=== PATIENT | female | born 1965 | race Hispanic/Latino ===

== ENCOUNTER 2016-10-14 20:05 | Observation (INO) | payer MEDICAID, OTHER ==
[2016-10-14 20:06] VITALS: BMI 24.5
[2016-10-14] MEDS ORDERED: Sodium Chloride 0.9% 1,000 ML IV STA (20:43)
[2016-10-14 21:02] LABS: HEMATOCRIT 39.6 % (36.0-48.0); MEAN CELL VOLUME 89.6 fL (80.0-105.0); MEAN CORPUSCULAR HEMOGLOBIN 31.4 pg (25.0-35.0); MEAN CORPUSCULAR HGB CONC 35.1 g/dl (31.0-37.0); MEAN PLATELET VOLUME 9.5 fl (7.0-11.0); RED CELL DISTRIBUTION WIDTH 13.5 % (11.5-14.5); WHITE BLOOD COUNT 16.8 10^3/ul (4.5-11.0)
[2016-10-14 21:04] LABS: URINE BILIRUBIN NEGATIVE (NEGATIVE); URINE BLOOD NEGATIVE (NEGATIVE); URINE GLUCOSE (UA) NEGATIVE (NEGATIVE); URINE KETONE NEGATIVE (NEGATIVE); URINE LEUKOCYTE ESTERASE NEGATIVE Leu/uL (NEGATIVE); URINE PROTEIN NEGATIVE mg/dL (<30 mg/dL); URINE UROBILINOGEN 0.2 E.U./dL (<1 E.U./dL)
--- NOTE | 2016-10-14 21:05 | ED PDOC ---
Arrival/HPI - General Chief Complaint: Back Pain Time Seen by Provider: 10/14/16 20:25 Historian: Patient - History of Present Illness Narrative History of Present Illness (Text): 10/14/16 20:30 Nancy Lewis is a 51 year old female who presents to the Emergency department complaining of right lower back pain radiating at times to lower abdomen tonight. Patient reports associated nausea and vomiting. Patient is able to ambulate without difficulty. Patient denies any trauma/injury, fever, chills, chest pain, shortness of breath, diarrhea, urinary symptoms, neck pain, headache , dizziness, or any other complaints.No vaginal discharge. Symptom Onset: Gradual Symptom Course: Unchanged Activities at Onset: Rest, Light Context: Home Past Medical History - Provider Review Nursing Documentation Reviewed: Yes - Infectious Disease Hx of Infectious Diseases: None - Reproductive Menopause: Yes - Cardiac Hx Cardiac Disorders: No Hx Hypertension: No - Pulmonary Hx Asthma: Yes - Neurological Hx Neurological Disorder: No - HEENT Hx HEENT Disorder: Yes Other/Comment: PT. FOR SURGERY 08/27/15-DX: VOCAL CORD POLYP - Renal Hx Renal Disorder: No - Endocrine/Metabolic Hx Endocrine Disorders: No - Hematological/Oncological Hx Blood Disorders: No - Integumentary Hx Dermatological Disorder: No - Musculoskeletal/Rheumatological Hx Musculoskeletal Disorders: Yes Hx Back Pain: Yes - Gastrointestinal Hx Gall Bladder Disease: Yes - Genitourinary/Gynecological Hx Genitourinary Disorders: No Hx Sexually Transmitted Diseases: No - Psychiatric Hx Anxiety: Yes Hx Depression: Yes Hx Substance Use: Yes (heroin) - Surgical History Hx Cholecystectomy: Yes - Anesthesia Hx Anesthesia: Yes Hx Anesthesia Reactions: No Hx Malignant Hyperthermia: No Family/Social History - Physician Review Nursing Documentation Reviewed: Yes Family/Social History: No Known Family HX Smoking Status: Heavy Smoker > 10 Cigarettes Daily Hx Alcohol Use: Yes Hx Substance Use: Yes (heroin) Substance used: heroine Allergies/Home Meds Allergies/Adverse Reactions: Allergies No Known Allergies Allergy (Verified 10/14/16 20:19) Home Medications: Home Meds Medication Instructions Recorded Confirmed Albuterol HFA [Ventolin HFA 90 2 puff INH PRN PRN 06/15/15 10/14/16 mcg/actuation (8 g)] Review of Systems - Physician Review All systems were reviewed & negative as marked: Yes - Review of Systems Constitutional: Normal Eyes: Normal ENT: Normal Respiratory: Normal. absent: SOB, Cough Cardiovascular: Normal. absent: Chest Pain Gastrointestinal: Abdominal Pain, Nausea, Vomiting Genitourinary Female: Normal. absent: Dysuria, Frequency, Hematuria, Urine Output Changes Musculoskeletal: Back Pain. absent: Neck Pain Skin: Normal. absent: Rash Neurological: Normal. absent: Headache, Dizziness Endocrine: Normal Hemo/Lymphatic: Normal Psychiatric: Normal Physical Exam Vital Signs Reviewed: Yes Vital Signs Temp Pulse Resp BP Pulse Ox 10/14/16 23:59 90 18 101/76 95 10/14/16 22:34 98.4 F 86 18 112/76 95 10/14/16 20:20 98.6 F 106 H 16 122/80 94 L Temperature: Afebrile Blood Pressure: Normal Pulse: Regular Respiratory Rate: Normal Appearance: Positive for: Well-Appearing, Non-Toxic, Comfortable Pain Distress: None Mental Status: Positive for: Alert and Oriented X 3 - Systems Exam Head: Present: Atraumatic, Normocephalic Pupils: Present: PERRL Extroacular Muscles: Present: EOMI Conjunctiva: Present: Normal Mouth: Present: Moist Mucous Membranes Pharnyx: Present: Normal Neck: Present: Normal Range of Motion. No: Meningeal Signs, MIDLINE TENDERNESS , Paraspinal Tenderness Respiratory/Chest: Present: Clear to Auscultation, Good Air Exchange. No: Respiratory Distress, Accessory Muscle Use Cardiovascular: Present: Regular Rate and Rhythm, Normal S1, S2. No: Murmurs Abdomen: Present: Tenderness (right lower abdomen), Normal Bowel Sounds. No: Distention, Peritoneal Signs Back: Present: Normal Inspection. No: CVA Tenderness, Midline Tenderness, Paraspinal Tenderness, Pain with Leg Raise Upper Extremity: Present: Normal Inspection. No: Cyanosis, Edema Lower Extremity: Present: Normal Inspection. No: Edema Neurological: Present: GCS=15, CN II-XII Intact, Speech Normal Skin: Present: Warm, Dry, Normal Color. No: Rashes Psychiatric: Present: Alert, Oriented x 3, Normal Insight, Normal Concentration Medical Decision Making ED Course and Treatment: 10/14/16 20:30 Impression: 51 year old female complaining of right lower back pain, nausea, and vomiting. Plan: -- CT Abdomen and Pelvis -- Labs, lipase -- Urinalysis, urine drug screen -- IV fluids -- Toradol -- Zofran -- Pepcid -- Reassess and disposition Prior Visits: Notes and results from previous visits were reviewed. Progress Notes: Reviewed radiology, CT Abdomen and Pelvis shows: Prominence of the main pancreatic duct, without a discrete mass identified. If clinical suspicion for pancreatic pathology persists, recommend dedicated (nonemergent) CT examination of the abdomen, with pancreatic protocol, for further evaluation. Trace mural thickening within multiple loops of small bowel, without surrounding inflammation or fluid to confirm an enteritis. 10/14/16 23:24 Case discussed with medical referral coordinator adaptive physical education teacher, who is aware and agrees with plan. 10/14/16 23:[address] Thomas, who is aware and agrees with plan. Accepts pt in to hospitalist service. Pt will go to [facility] observation for abdominal pain and leukocytosis. - Lab Interpretations Lab Results: 10/14/16 20:34 10/14/16 20:34 Lab Results 10/14/16 20:34: Urine Opiates Screen Positive H, Urine Methadone Screen Negative , Ur Barbiturates Screen Negative, Ur Phencyclidine Scrn Negative, Ur Amphetamines Screen Negative, U Benzodiazepines Scrn Negative, U Oth Cocaine Metabols Negative, U Cannabinoids Screen Negative 10/14/16 20:34: WBC 16.8 H D, RBC 4.42, Hgb 13.9, Hct 39.6, MCV 89.6, MCH 31.4, MCHC 35.1, RDW 13.5, Plt Count 153, MPV 9.5 10/14/16 20:34: Sodium 138, Potassium 4.4, Chloride 103, Carbon Dioxide 24, Anion Gap 15, BUN 18, Creatinine 0.7, Est GFR ( Amer) > 60, Est GFR (Non- Af Amer) > 60, Random Glucose 116 H, Calcium 9.5, Total Bilirubin 1.9 H, AST 40 H, ALT 70 H, Alkaline Phosphatase 107, Total Protein 7.5, Albumin 4.0, Globulin 3.5, Albumin/Globulin Ratio 1.1, Lipase 12 L 10/14/16 20:34: Urine Color Yellow, Urine Appearance Clear, Urine pH 6.0, Ur Specific Emery 1.015, Urine Protein Negative, Urine Glucose (UA) Negative, Urine Ketones Negative, Urine Blood Negative, Urine Nitrate Negative, Urine Bilirubin Negative, Urine Urobilinogen 0.2, Ur Leukocyte Esterase Negative, Urine HCG, Qual Negative I have reviewed the lab results: Yes - RAD Interpretation Narrative RAD Interpretations (Text): CT Abdomen and Pelvis shows: Lower thorax: The bilateral lung bases are clear. ABDOMEN: Liver: No acute findings. Gallbladder and bile ducts: The gallbladder is surgically absent. No significant intrahepatic biliary ductal dilation. Pancreas: Enhances homogeneously. Prominence of the main pancreatic duct, without a discrete mass identified. Spleen: No acute findings. Adrenals: No acute findings. Kidneys and ureters: No acute findings. No hydronephrosis or renal calculi. No discrete solid mass. PELVIS: Bladder: No acute findings. Reproductive: No acute findings. Appendix: The air filled appendix is of normal caliber (series 2, image 133). ABDOMEN and PELVIS: Stomach and bowel: Small bowel wall thickening but no surrounding inflammation or fluid to confirm an acute enteritis. Peritoneum: No significant fluid collection. No free air. Lymph nodes: No pathologically enlarged lymph nodes. Vasculature: Unremarkable. Bones: No acute fracture. No significant degenerative disease within the lumbosacral spine. IMPRESSION: Prominence of the main pancreatic duct, without a discrete mass identified. If clinical suspicion for pancreatic pathology persists, recommend dedicated (nonemergent) CT examination of the abdomen, with pancreatic protocol, for further evaluation. Trace mural thickening within multiple loops of small bowel, without surrounding inflammation or fluid to confirm an enteritis. Radiology Orders: 10/14/16 21:24 ABD & PELVIS IV CONTRAST ONLY [CT] Stat Drug Abuse Social Worker: Radiologist - Medication Orders Current Medication Orders: Albuterol Sulfate (Albuterol 0.083% Inhal Lisa (2.5 Mg/3 Ml) Ud) 2.5 mg IH [id number] PRN PRN Reason: Shortness of Breath Diphenhydramine HCl (Benadryl) 25 mg PO Q6 PRN PRN Reason: Itching / Pruritus Gabapentin (Neurontin) 300 mg PO BID RIVKA PRN Reason: Protocol Hydrocortisone (Cortizone 1% Oint) 0 gm TOP BID RIVKA Metronidazole (Flagyl) 500 mg in 100 mls @ 100 mls/hr IVPB Q8 RIVKA PRN Reason: Protocol Ceftriaxone Sodium (Rocephin 1 Gram Ivpb) 1 gm in 100 mls @ 100 mls/hr IVPB DAILY RIVKA PRN Reason: Protocol Ketorolac Tromethamine (Toradol) 30 mg IVP Q6 PRN PRN Reason: Pain, moderate (4-7) Last Admin: 10/15/16 01:36 Dose: 30 mg Pantoprazole Sodium (Protonix Ec Tab) 40 mg PO 0630 RIVKA Quetiapine Fumarate (Seroquel) 300 mg PO HS RIVKA PRN Reason: Protocol Discontinued Medications Famotidine (Pepcid) 20 mg IVP STAT STA Stop: 10/14/16 20:44 Last Admin: 10/14/16 21:10 Dose: 20 mg Sodium Chloride (Sodium Chloride 0.9%) 1,000 mls @ 999 mls/hr IV .Q1H1M STA Stop: 10/14/16 21:43 Last Admin: 10/14/16 21:02 Dose: 999 mls/hr Iohexol (Omnipaque 350 100 Ml) Confirm Administered Dose 350 mg .ROUTE .STK-MED ONE Stop: 10/14/16 21:34 Ketorolac Tromethamine (Toradol) 30 mg IVP ONCE ONE Stop: 10/14/16 20:44 Last Admin: 10/14/16 21:02 Dose: 30 mg Ondansetron HCl (Zofran Inj) 4 mg IVP ONCE ONE Stop: 10/14/16 20:44 Last Admin: 10/14/16 21:02 Dose: 4 mg Quetiapine Fumarate (Seroquel) 300 mg PO ONCE ONE PRN Reason: Protocol Stop: 10/15/16 01:36 Last Admin: 10/15/16 02:01 Dose: 300 mg - Higinioibe Statement The provider has reviewed the documentation as recorded by the Mynor Aldridge All medical record entries made by the Mynor were at my direction and personally dictated by me. I have reviewed the chart and agree that the record accurately reflects my personal performance of the history, physical exam, medical decision making, and the department course for this patient. I have also personally directed, reviewed, and agree with the discharge instructions and disposition. Disposition/Present on Arrival - Present on Arrival Any Indicators Present on Arrival: No History of DVT/PE: No History of Uncontrolled Diabetes: No Urinary Catheter: No History of Decub. Ulcer: No History Surgical Site Infection Following: None - Disposition Have Diagnosis and Disposition been Completed?: Yes Diagnosis: Abdominal pain Disposition: HOSPITALIZED Disposition Time: 23:37 Patient Plan: Observation Patient Problems: Current Active Problems Problem Status Onset Abdominal pain Acute Condition: STABLE
[2016-10-14 21:07] LABS: URINE APPEARANCE CLEAR (CLEAR); URINE COLOR YELLOW (YELLOW)
[2016-10-14 21:16] LABS: ALB/GLOB RATIO 1.1 (1.1-1.8); ALKALINE PHOSPHATASE 107 U/L (38-133); ALT/SGPT 70 U/L (7-56); AST/SGOT 40 U/L (15-39); BILIRUBIN,TOTAL 1.9 mg/dL (0.2-1.3); BLOOD UREA NITROGEN 18 mg/dL (7-21); CALCIUM 9.5 mg/dL (8.4-10.5); CARBON DIOXIDE 24 mmol/L (21-33); CHLORIDE 103 mmol/L (98-107); GFR AFRICAN-AMERICAN > 60; GLUCOSE,RANDOM 116 mg/dL (70-110); LIPASE 12 U/L (23-300); POTASSIUM 4.4 mmol/L (3.6-5.0); SODIUM 138 mmol/L (132-148); TOTAL PROTEIN 7.5 g/dL (5.8-8.3)
[2016-10-14] MEDS ORDERED: Iohexol 350 MG/100 ML VIAL ONE (21:33)
--- NOTE | 2016-10-14 22:24 | CT ---
EXAM: CT Abdomen and Pelvis With Intravenous Contrast CLINICAL HISTORY: 51 years old, female; Pain; Other: Back; Prior surgery; Surgery date: 6+ months; Surgery type: Gb; Additional info: Abdominal pain TECHNIQUE: Axial computed tomography images of the abdomen and pelvis with intravenous contrast. This CT exam was performed using one or more of the following dose reduction techniques: automated exposure control, adjustment of the mA and/or kV according to patient size, and/or use of iterative reconstruction technique. Coronal and sagittal reformatted images were created and reviewed. CONTRAST: 94 mL of OMNI 350 administered intravenously. COMPARISON: No relevant prior studies available. FINDINGS: Lower thorax: The bilateral lung bases are clear. ABDOMEN: Liver: No acute findings. Gallbladder and bile ducts: The gallbladder is surgically absent. No significant intrahepatic biliary ductal dilation. Pancreas: Enhances homogeneously. Prominence of the main pancreatic duct, without a discrete mass identified. Spleen: No acute findings. Adrenals: No acute findings. Kidneys and ureters: No acute findings. No hydronephrosis or renal calculi. No discrete solid mass. PELVIS: Bladder: No acute findings. Reproductive: No acute findings. Appendix: The air filled appendix is of normal caliber (series 2, image 133). ABDOMEN and PELVIS: Stomach and bowel: Small bowel wall thickening but no surrounding inflammation or fluid to confirm an acute enteritis. Peritoneum: No significant fluid collection. No free air. Lymph nodes: No pathologically enlarged lymph nodes. Vasculature: Unremarkable. Bones: No acute fracture. No significant degenerative disease within the lumbosacral spine. IMPRESSION: Prominence of the main pancreatic duct, without a discrete mass identified. If clinical suspicion for pancreatic pathology persists, recommend dedicated (nonemergent) CT examination of the abdomen, with pancreatic protocol, for further evaluation. Trace mural thickening within multiple loops of small bowel, without surrounding inflammation or fluid to confirm an enteritis.
--- NOTE | 2016-10-15 00:48 | CP.PCM.HP ---
<Janine Tony - Last Filed: 10/15/16 01:43> History of Present Illness - History of Present Illness History of Present Illness: PGY-1 h&p 51 yo female with PMH of asthma, anxiety, depression, polysubstance abuse presented to ED with abd pain and back pain. Patient states that yesterday she began to have lower back pain mostly on the right side that radiated up her back. She states that she took ibuprofen and it alleviated some of the pain however it would return. Today the patient states that the pain in her stomach began and was not alleviated with ibuprofen. She also reports vomiting x3. Patient states that she [place] the light rail yesterday and she sprained her ankle. Patient also states that she developed a rash and pruritus through her body today. Patient denies recent travel. Her daughter did have strep throat 3 days ago, but patient denies sore throat, nasal congestion, fever , cough. 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 Patient states that she did snort heroine 5-6 days before. PMH: asthma, anxiety, depression, polysubstance abuse PSH: cholecystectomy, vocal cord polyp removal social hx: 1/2ppd, denies alcohol use, snorted heroin 5-6 days ago, uses 1 bag per week fam hx: father- throat ca, mother- asthma, siblings- DM Allergy: NKDA home meds: albuterol inhaler, neurontin, seroquel Present on Admission - Present on Admission Any Indicators Present on Admission: No Review of Systems - Constitutional Constitutional: Chills. absent: Fatigue, Fever, Headache, Weight Gain, Weight Loss - EENT Nose/Mouth/Throat: absent: Nasal Congestion, Nasal Discharge, Hoarsness, Sore Throat - Cardiovascular Cardiovascular: Rapid Heart Rate. absent: Chest Pain, Diaphoresis, Dyspnea, Leg Ulcers, Lightheadedness, Palpitations, Pedal Edema, Syncope - Respiratory Respiratory: absent: Cough, Dyspnea, Hemoptysis - Gastrointestinal Gastrointestinal: Abdominal Pain, Nausea, Vomiting. absent: Constipation, Diarrhea, Heartburn, Hematemesis, Hematochezia - Genitourinary Genitourinary: Flank Pain. absent: Difficulty Urinating, Dysuria, Hematuria, Urinary Incontinence, Urinary Frequency - Musculoskeletal Musculoskeletal: Back Pain. absent: Myalgias, Numbness, Stiffness, Tingling - Integumentary Integumentary: Pruritus, Rash, Swelling (right ankle) - Neurological Neurological: absent: Dizziness, Numbness, Headaches, Syncope, Vertigo - Hematologic/Lymphatic Hematologic: absent: Easy Bleeding, Easy Bruising Past Patient History - Infectious Disease Hx of Infectious Diseases: None - Past Medical History & Family History Past Medical History?: Yes - Past Social History Smoking Status: Heavy Smoker > 10 Cigarettes Daily Alcohol: None Drugs: Opiates - CARDIAC Hx Cardiac Disorders: No Hx Hypertension: No - PULMONARY Hx Asthma: Yes - NEUROLOGICAL Hx Neurological Disorder: No - HEENT Hx HEENT Problems: Yes Other/Comment: PT. FOR SURGERY 08/27/15-DX: VOCAL CORD POLYP - RENAL Hx Chronic Kidney Disease: No - ENDOCRINE/METABOLIC Hx Endocrine Disorders: No - HEMATOLOGICAL/ONCOLOGICAL Hx Blood Disorders: No - INTEGUMENTARY Hx Dermatological Problems: No - MUSCULOSKELETAL/RHEUMATOLOGICAL Hx Musculoskeletal Disorders: Yes Hx Back Pain: Yes - GASTROINTESTINAL Hx Gall Bladder Disease: Yes - GENITOURINARY/GYNECOLOGICAL Hx Genitourinary Disorders: No Hx Sexually Transmitted Disorders: No - PSYCHIATRIC Hx Anxiety: Yes Hx Depression: Yes Hx Substance Use: Yes (heroin) - SURGICAL HISTORY Hx Cholecystectomy: Yes - ANESTHESIA Hx Anesthesia: Yes Hx Anesthesia Reactions: No Hx Malignant Hyperthermia: No Meds Allergies/Adverse Reactions: Allergies Allergy/AdvReac Type Severity Reaction Status Date / Time No Known Allergies Allergy Verified 10/14/16 20:19 Physical Exam - Constitutional Appears: No Acute Distress - Head Exam Head Exam: ATRAUMATIC, NORMOCEPHALIC - Eye Exam Eye Exam: EOMI, Normal appearance - ENT Exam ENT Exam: Mucous Membranes Moist - Respiratory Exam Respiratory Exam: Clear to Auscultation Bilateral, NORMAL BREATHING PATTERN. absent: Decreased Breath Sounds, Rales, Rhonchi, Wheezes, Respiratory Distress - Cardiovascular Exam Cardiovascular Exam: REGULAR RHYTHM, +S1, +S2. absent: Tachycardia, Diastolic murmur, Systolic Murmur - GI/Abdominal Exam GI & Abdominal Exam: Normal Bowel Sounds, Soft, Tenderness (lower quadrants). absent: Distended, Firm, Guarding, Hernia - Extremities Exam Extremities exam: Positive for: normal inspection, tenderness (right ankle ). Negative for: pedal edema - Back Exam Back exam: CVA tenderness (R). absent: paraspinal tenderness, vertebral tenderness - Neurological Exam Neurological exam: Alert, Oriented x3 - Skin Skin Exam: Dry, Intact, Rash (diffuse, erythema ), Warm Results - Vital Signs Recent Vital Signs: Last Vital Signs Temp 98.4 F 10/14/16 22:34 Pulse 90 10/14/16 23:59 Resp 18 10/14/16 23:59 BP 101/76 10/14/16 23:59 Pulse Ox 95 10/14/16 23:59 - Labs Result Diagrams: 10/14/16 20:34 10/14/16 20:34 Assessment & Plan - Assessment and Plan (Free Text) Assessment: 51 yo female with PMH of asthma, anxiety, depression, polysubstance abuse presented to ED with abd pain and rash. Plan: 1. abd pain - CT abd showed prominence of main pancreatic duct, and trace mural thickening within multiple loops of small bowel, no inflammation (see full report) - start Rocephin and flagyl - toradol prn for pain - slightly increased LFTs, will order hep panel 2. rash/ pruititis - hydrocortisone cream - Benadryl 3. anxiety - cont home medication, seroquel ppx dvt- scds, activity as tolerated GI- protonix <[email or web address] - Last Filed: 10/15/16 03:00> Results - Vital Signs Recent Vital Signs: Last Vital Signs Temp 98.4 F 10/14/16 22:34 Pulse 90 10/14/16 23:59 Resp 18 10/14/16 23:59 BP 101/76 10/14/16 23:59 Pulse Ox 95 10/14/16 23:59 - Labs Result Diagrams: 10/14/16 20:34 10/14/16 20:34 Attending/Attestation - Attestation I have personally seen and examined this patient.: Yes I have fully participated in the care of the patient.: Yes I have reviewed all pertinent clinical information: Yes Notes (Text): 10/15/16 02:59 Patient was seen when she was in [id number]. Agree with history , physical examination, assessment and plan.
[2016-10-15] MEDS ORDERED: Albuterol 0.083% Inhal Sol (2.5 mg/3 mL) UD IH PRN (01:07)
[2016-10-15 05:49] LABS: ARTERIAL BLOOD GAS HCO3 26.6 mmol/L (21-28); ARTERIAL BLOOD GAS O2 CAPACITY 15.4 mL/dl (16-24); ARTERIAL BLOOD GAS O2 CONTENT 15.2 ML/dl (15-23); ARTERIAL BLOOD GAS PH 7.38 (7.35-7.45); ARTERIAL BLOOD HGB O2 SAT 92.2 % (95.0-98.0); CARBOXYHEMOGLOBIN 5.8 % (0.5-1.5); HHB 1.1 % (0-5)
[2016-10-15] MEDS: metroNIDAZOLE IV 500 mg/100 ml 500 MG/100 ML BAG IVPB SCH ×3 (06:18→22:35)
[2016-10-15] MEDS: Pantoprazole 40 mg EC Tab PO SCH (06:18)
[2016-10-15 07:23] LABS: ADD MANUAL DIFF? NO
[2016-10-15 07:38] LABS: ALKALINE PHOSPHATASE 83 U/L (38-133); ALT/SGPT 64 U/L (7-56); AST/SGOT 36 U/L (15-39); BILIRUBIN,TOTAL 1.1 mg/dL (0.2-1.3); BLOOD UREA NITROGEN 16 mg/dL (7-21); CALCIUM 8.5 mg/dL (8.4-10.5); CARBON DIOXIDE 25 mmol/L (21-33); CHLORIDE 106 mmol/L (98-107); GFR AFRICAN-AMERICAN > 60; GLUCOSE,RANDOM 102 mg/dL (70-110); POTASSIUM 4.2 mmol/L (3.6-5.0); SODIUM 137 mmol/L (132-148); TOTAL PROTEIN 6.1 g/dL (5.8-8.3)
[2016-10-15 07:50] LABS: BASO # 0.01 K/mm3 (0.0-2.0); BASO % 0.1 % (0.0-3.0); EOS # 0.1 (0.0-0.7); EOS % 0.8 % (1.5-5.0); GRAN # 7.76 (1.4-6.5); GRAN % 79.7 % (50.0-68.0); HEMATOCRIT 34.6 % (36.0-48.0); LYMPH # 1.3 (1.2-3.4); LYMPH % 13.4 % (22.0-35.0); MEAN CELL VOLUME 89.9 fL (80.0-105.0); MEAN CORPUSCULAR HEMOGLOBIN 30.4 pg (25.0-35.0); MEAN CORPUSCULAR HGB CONC 33.8 g/dl (31.0-37.0); MEAN PLATELET VOLUME 10.1 fl (7.0-11.0); MONO # 0.6 (0.1-0.6); PLATELET COUNT 110 10^3/uL (120.0-450.0); RED CELL DISTRIBUTION WIDTH 13.9 % (11.5-14.5); WHITE BLOOD COUNT 9.7 10^3/ul (4.5-11.0)
[2016-10-15] MEDS ORDERED: Sodium Chloride 0.9% 1,000 ML IV SCH (08:15)
[2016-10-15] MEDS: cefTRIAXone 1 gm 1 GM/100 ML BAG IVPB SCH (09:50)
--- NOTE | 2016-10-15 14:11 | CP.PCM.CON ---
<Danny Ochoa - Last Filed: 10/15/16 13:59> History of Present Illness - History of Present Illness History of Present Illness: PGY4 GI Fellow Consult Note Patient is a 51yo female with PMHx significant for asthma, anxiety, depression, prior inpatient psychiatric admission for suicidal ideation, heroin abuse who presented to the ED with back pain. Currently, the patient is rather drowsy and falls asleep frequently during history/examination requiring frequent redirection and tactile stimuli to stay awake. On return to visit the patient, her sister was present and was able to assist with history. The patient suddenly developed mid-lower back pain yesterday evening. She took Ibuprofen with minimal improvement in symptoms. As pain persisted, it intensified and radiated to her right flank and eventually in to her abdomen. She became nauseated and vomited small volumes of bilious emesis. With this, she decided to come to the ED for further evaluation. Our service has been consulted for abdominal pain and elevated LFTs. The patient denies any illicit drug use or EtOH abuse in the days leading up to admission. She denies any recent travel, antibiotic use or sick contacts. Per the admitting H&P, the patient had stated that she used heroine 5-6 days [employer]. PMHx: See HPI PSHx: Cholecystectomy, removal of vocal cord polyp FHx: Patient denies, per H&P - Father with laryngeal cancer, mother with asthma Social: Heroin use (unclear when most recent use was), 1/2ppd tobacco use, denies EtOH use Endo: No prior evaluations Review of Systems - Review of Systems Systems not reviewed;Unavailable: Altered Mental Status, Uncooperative Past Patient History - Infectious Disease Hx of Infectious Diseases: None - Past Medical History & Family History Past Medical History?: Yes - Past Social History Smoking Status: Heavy Smoker > 10 Cigarettes Daily - CARDIAC Hx Cardiac Disorders: No Hx Hypertension: No - PULMONARY Hx Asthma: Yes - NEUROLOGICAL Hx Neurological Disorder: No - HEENT Hx HEENT Problems: Yes Other/Comment: PT. FOR SURGERY 08/27/15-DX: VOCAL CORD POLYP - RENAL Hx Chronic Kidney Disease: No - ENDOCRINE/METABOLIC Hx Endocrine Disorders: No - HEMATOLOGICAL/ONCOLOGICAL Hx Blood Disorders: No - INTEGUMENTARY Hx Dermatological Problems: No - MUSCULOSKELETAL/RHEUMATOLOGICAL Hx Musculoskeletal Disorders: Yes Hx Back Pain: Yes - GASTROINTESTINAL Hx Gall Bladder Disease: Yes - GENITOURINARY/GYNECOLOGICAL Hx Genitourinary Disorders: No Hx Sexually Transmitted Disorders: No - PSYCHIATRIC Hx Anxiety: Yes Hx Depression: Yes Hx Substance Use: Yes (heroin) - SURGICAL HISTORY Hx Cholecystectomy: Yes - ANESTHESIA Hx Anesthesia: Yes Hx Anesthesia Reactions: No Hx Malignant Hyperthermia: No Meds Allergies/Adverse Reactions: Allergies Allergy/AdvReac Type Severity Reaction Status Date / Time No Known Allergies Allergy Verified 10/14/16 20:19 - Medications Medications: Current Medications Albuterol Sulfate (Albuterol 0.083% Inhal Lisa (2.5 Mg/3 Ml) Ud) 2.5 mg IH [id number] PRN PRN Reason: Shortness of Breath Diphenhydramine HCl (Benadryl) 25 mg PO Q6 PRN PRN Reason: Itching / Pruritus Gabapentin (Neurontin) 300 mg PO BID RIVKA PRN Reason: Protocol Last Admin: 10/15/16 09:50 Dose: 300 mg Hydrocortisone (Cortizone 1% Oint) 0 gm TOP BID RIVKA Metronidazole (Flagyl) 500 mg in 100 mls @ 100 mls/hr IVPB Q8 RIVKA PRN Reason: Protocol Last Admin: 10/15/16 06:18 Dose: 100 mls/hr Ceftriaxone Sodium (Rocephin 1 Gram Ivpb) 1 gm in 100 mls @ 100 mls/hr IVPB DAILY RIVKA PRN Reason: Protocol Last Admin: 10/15/16 09:50 Dose: 100 mls/hr Sodium Chloride (Sodium Chloride 0.9%) 1,000 mls @ 75 mls/hr IV .[id number] [facility] Last Admin: 10/15/16 08:30 Dose: 75 mls/hr Ketorolac Tromethamine (Toradol) 30 mg IVP Q6 PRN PRN Reason: Pain, moderate (4-7) Last Admin: 10/15/16 01:36 Dose: 30 mg Pantoprazole Sodium (Protonix Ec Tab) 40 mg PO 0630 [facility] Last Admin: 10/15/16 06:18 Dose: 40 mg Quetiapine Fumarate (Seroquel) 300 mg PO HS RIVKA PRN Reason: Protocol Physical Exam - Constitutional Appears: Confused Additional comments: drowsy but arousable - Eye Exam Eye Exam: PERRL - ENT Exam ENT Exam: Mucous Membranes Moist - Respiratory Exam Respiratory Exam: Clear to Auscultation Bilateral. absent: Rales, Rhonchi, Wheezes - Cardiovascular Exam Cardiovascular Exam: RRR, +S1, +S2 - GI/Abdominal Exam GI & Abdominal Exam: Distended, Normal Bowel Sounds, Soft. absent: Firm, Guarding, Organomegaly, Rigid, Tenderness - Extremities Exam Extremities exam: Positive for: normal inspection. Negative for: pedal edema - Neurological Exam Neurological exam: Altered - Psychiatric Exam Additional comments: somnolent - Skin Skin Exam: Dry, Warm Results - Vital Signs Recent Vital Signs: Last Vital Signs Temp 98.9 F 10/15/16 08:52 Pulse 94 H 10/15/16 08:52 Resp 20 10/15/16 08:52 BP 102/63 10/15/16 08:52 Pulse Ox 94 L 10/15/16 08:52 - Labs Result Diagrams: 10/15/16 07:10 10/15/16 07:10 Labs: Laboratory Results - last 24 hr 10/15/16 10/15/16 10/15/16 05:13 05:30 07:10 WBC 9.7 D RBC 3.85 Hgb 11.7 L Hct 34.6 L MCV 89.9 MCH 30.4 MCHC 33.8 RDW 13.9 Plt Count 110 L MPV 10.1 Gran % 79.7 H Lymph % (Auto) 13.4 L [place] % (Auto) 6.0 Eos % (Auto) 0.8 L Baso % (Auto) 0.1 Gran # 7.76 H Lymph # 1.3 [place] # 0.6 Eos # 0.1 Baso # 0.01 pCO2 45 pO2 98.0 HCO3 26.6 ABG pH 7.38 ABG Total CO2 28.0 ABG O2 Saturation 98.8 H ABG O2 Content 15.2 ABG Base Excess 1.1 ABG Hemoglobin 11.6 L ABG Carboxyhemoglobin 5.8 H POC ABG HHb (Measured) 1.1 ABG Methemoglobin 1.0 ABG O2 Capacity 15.4 L Hgb O2 Saturation 92.2 L FiO2 28.0 Sodium Potassium Chloride Carbon Dioxide Anion Gap BUN Creatinine Est GFR ( Amer) Est GFR (Non-Af Amer) POC Glucose (mg/dL) 118 H Random Glucose Calcium Total Bilirubin AST ALT Alkaline Phosphatase Total Protein Albumin Globulin Albumin/Globulin Ratio Hepatitis A IgM Ab Hep Bs Antigen Hep B Core IgM Ab 06/01/17 06/01/17 07:10 07:10 WBC RBC Hgb Hct MCV MCH MCHC RDW Plt Count MPV Gran % Lymph % (Auto) [place] % (Auto) Eos % (Auto) Baso % (Auto) Gran # Lymph # [place] # Eos # Baso # pCO2 pO2 HCO3 ABG pH ABG Total CO2 ABG O2 Saturation ABG O2 Content ABG Base Excess ABG Hemoglobin ABG Carboxyhemoglobin POC ABG HHb (Measured) ABG Methemoglobin ABG O2 Capacity Hgb O2 Saturation FiO2 Sodium 137 Potassium 4.2 Chloride 106 Carbon Dioxide 25 Anion Gap 10 BUN 16 Creatinine 0.6 Est GFR ( Amer) > 60 Est GFR (Non-Af Amer) > 60 POC Glucose (mg/dL) Random Glucose 102 Calcium 8.5 Total Bilirubin 1.1 AST 36 ALT 64 H Alkaline Phosphatase 83 Total Protein 6.1 Albumin 3.0 Globulin 3.1 Albumin/Globulin Ratio 1.0 L Hepatitis A IgM Ab Negative Hep Bs Antigen Negative Hep B Core IgM Ab Negative Assessment & Plan - Assessment and Plan (Free Text) Assessment: Patient is a 51yo female with PMHx significant for asthma, anxiety, depression, prior inpatient psychiatric admission for suicidal ideation, heroin abuse who presented to the ED with back pain. -Abdominal pain -Altered mentation -Heroin abuse Plan: -CT reviewed -Check CT pancreatic protocol given abnormal PD on initial CT -Consider U/S pending above results -Diet as tolerated; assistance with meals until patient is more alert to avoid aspiration -UDS positive for opiates - none given in house prior to analysis -Hepatitis serologies pending -LFTs improved, monitor CMP -Would hold all sedating agents given current mentation, including Seroquel and Gabapentin - Date & Time Date: 10/15/16 Time: 08:00 <Ilene Fulton - Last Filed: 10/15/16 14:25> Meds - Medications Medications: Current Medications Albuterol Sulfate (Albuterol 0.083% Inhal Lisa (2.5 Mg/3 Ml) Ud) 2.5 mg IH [id number] PRN PRN Reason: Shortness of Breath Gabapentin (Neurontin) 300 mg PO BID RIVKA PRN Reason: Protocol Last Admin: 10/15/16 09:50 Dose: 300 mg Hydrocortisone (Cortizone 1% Oint) 0 gm TOP BID [facility] Metronidazole (Flagyl) 500 mg in 100 mls @ 100 mls/hr IVPB Q8 RIVKA PRN Reason: Protocol Last Admin: 10/15/16 06:18 Dose: 100 mls/hr Ceftriaxone Sodium (Rocephin 1 Gram Ivpb) 1 gm in 100 mls @ 100 mls/hr IVPB DAILY RIVKA PRN Reason: Protocol Last Admin: 10/15/16 09:50 Dose: 100 mls/hr Sodium Chloride (Sodium Chloride 0.9%) 1,000 mls @ 75 mls/hr IV .[id number] [facility] Last Admin: 10/15/16 08:30 Dose: 75 mls/hr Ketorolac Tromethamine (Toradol) 30 mg IVP Q6 PRN PRN Reason: Pain, moderate (4-7) Last Admin: 10/15/16 01:36 Dose: 30 mg Pantoprazole Sodium (Protonix Ec Tab) 40 mg PO 0630 [facility] Last Admin: 10/15/16 06:18 Dose: 40 mg Quetiapine Fumarate (Seroquel) 300 mg PO HS [facility] PRN Reason: Protocol Results - Vital Signs Recent Vital Signs: Last Vital Signs Temp 98.9 F 10/15/16 08:52 Pulse 94 H 10/15/16 08:52 Resp 20 10/15/16 08:52 BP 102/63 10/15/16 08:52 Pulse Ox 94 L 10/15/16 08:52 - Labs Result Diagrams: 10/15/16 07:10 10/15/16 07:10 Labs: Laboratory Results - last 24 hr 10/15/16 10/15/16 10/15/16 05:13 05:30 07:10 WBC 9.7 D RBC 3.85 Hgb 11.7 L Hct 34.6 L MCV 89.9 MCH 30.4 MCHC 33.8 RDW 13.9 Plt Count 110 L MPV 10.1 Gran % 79.7 H Lymph % (Auto) 13.4 L [place] % (Auto) 6.0 Eos % (Auto) 0.8 L Baso % (Auto) 0.1 Gran # 7.76 H Lymph # 1.3 [place] # 0.6 Eos # 0.1 Baso # 0.01 pCO2 45 pO2 98.0 HCO3 26.6 ABG pH 7.38 ABG Total CO2 28.0 ABG O2 Saturation 98.8 H ABG O2 Content 15.2 ABG Base Excess 1.1 ABG Hemoglobin 11.6 L ABG Carboxyhemoglobin 5.8 H POC ABG HHb (Measured) 1.1 ABG Methemoglobin 1.0 ABG O2 Capacity 15.4 L Hgb O2 Saturation 92.2 L FiO2 28.0 Sodium Potassium Chloride Carbon Dioxide Anion Gap BUN Creatinine Est GFR ( Amer) Est GFR (Non-Af Amer) POC Glucose (mg/dL) 118 H Random Glucose Calcium Total Bilirubin AST ALT Alkaline Phosphatase Total Protein Albumin Globulin Albumin/Globulin Ratio Hepatitis A IgM Ab Hep Bs Antigen Hep B Core IgM Ab 10/15/16 10/15/16 07:10 07:10 WBC RBC Hgb Hct MCV MCH MCHC RDW Plt Count MPV Gran % Lymph % (Auto) [place] % (Auto) Eos % (Auto) Baso % (Auto) Gran # Lymph # [place] # Eos # Baso # pCO2 pO2 HCO3 ABG pH ABG Total CO2 ABG O2 Saturation ABG O2 Content ABG Base Excess ABG Hemoglobin ABG Carboxyhemoglobin POC ABG HHb (Measured) ABG Methemoglobin ABG O2 Capacity Hgb O2 Saturation FiO2 Sodium 137 Potassium 4.2 Chloride 106 Carbon Dioxide 25 Anion Gap 10 BUN 16 Creatinine 0.6 Est GFR ( Amer) > 60 Est GFR (Non-Af Amer) > 60 POC Glucose (mg/dL) Random Glucose 102 Calcium 8.5 Total Bilirubin 1.1 AST 36 ALT 64 H Alkaline Phosphatase 83 Total Protein 6.1 Albumin 3.0 Globulin 3.1 Albumin/Globulin Ratio 1.0 L Hepatitis A IgM Ab Negative Hep Bs Antigen Negative Hep B Core IgM Ab Negative Attending/Attestation - Attestation I have personally seen and examined this patient.: Yes I have fully participated in the care of the patient.: Yes I have reviewed all pertinent clinical information: Yes Notes (Text): Patient seen and examined with GI fellow. Agree with his note as documented above with the following additions/exceptions. This is a 51 year old with h/o asthma, anxiety, depression, polysubstance abuse with recent heroin use who is admitted with back pain. She is found to have abnormal LFTs (improved today). On CT, she was found to have prominent PD and mild thickening of small bowel loops. She has remote history of cholecystectomy. She is drowsy but arousable and not the best historian. Her sister at bedside corroborates some history. Would continue conservative management at this time. Obtain CT pancreas protocol, monitor LFTs. Follow up hepatitis panel. Diet as tolerated. 10/15/16 14:25
--- NOTE | 2016-10-15 17:46 | CT ---
PROCEDURE: CT Abdomen and Pelvis with contrast HISTORY: PD dilation, abdominal/back pain COMPARISON: October 14, 2016. CT abdomen and pelvis. TECHNIQUE: Contrast dose: 150 cc Omnipaque 350. Radiation dose: Total exam DLP = 847.43 mGy-cm. This CT exam was performed using one or more of the following dose reduction techniques: Automated exposure control, adjustment of the mA and/or kV according to patient size, and/or use of iterative reconstruction technique. FINDINGS: LOWER THORAX: Trace atelectasis and pleural effusions unchanged compared to prior study. LIVER: Hepatic steatosis. No focal masses. Mild intrahepatic bile duct dilatation likely related to prior cholecystectomy. No perihepatic ascites. GALLBLADDER AND BILE DUCTS: Status post cholecystectomy. No abnormality is seen in the gallbladder fossa. PANCREAS: Unremarkable. No gross lesion or ductal dilatation. SPLEEN: Unremarkable. ADRENALS: Unremarkable. No mass. KIDNEYS AND URETERS: Unremarkable. No hydronephrosis. No solid mass. VASCULATURE: Unremarkable. No aortic aneurysm. BOWEL: Unremarkable. No obstruction. No gross mural thickening. APPENDIX: Normal appendix. PERITONEUM: Unremarkable. No free fluid. No free air. LYMPH NODES: Unremarkable. No enlarged lymph nodes. BLADDER: Unremarkable. REPRODUCTIVE: Unremarkable. BONES: No acute fracture. OTHER FINDINGS: None. IMPRESSION: Status post cholecystectomy. The degree of dilatation of the intrahepatic bile ducts, common bile duct are within normal limits. The pancreatic duct is likewise unremarkable without focal or diffuse abnormality.
--- NOTE | 2016-10-15 18:39 | CON ---
DATE: 10/15/2016 HISTORY OF PRESENT ILLNESS: Shortly, the patient is a 51-year-old female with a long and d ebilitating history of opioid addiction. The patient has a history of being admitted to the [facility] for detox. The patient was admitted on the medical side at this time for evaluation of back pain. Psych consult was called because the patient has history of depression, anxiety and opioid add iction. As per report, the patient had visitors and patient had unknown medication, which she refuse d to give to the pharmacy. The patient eventually gave her medications and the patient was reluctant to give up her medication to the pharmacy for verification. The patient was seen and examined today with the medical secretary teacher as well as student. The patient presented to be drowsy, was falling aslee p during the interview. Despite that, the patient complained of feeling anxious, but from this write r's perspective, it is not physically possible to feel anxious and fall asleep. The patient reported that she feels depressed because of the social issues and homelessness. The patient denied thoughts of harming herself or others. The patient denied hearing voices, denied seeing things. VITAL SIGNS: Reviewed. Temperature 98.7, pulse is 87, blood pressure 95/62, respirations 20, oxygen saturation is 99. MEDICATIONS: Reviewed. The patient is on Rocephin, Neurontin, Toradol, Flagyl, Protonix, Seroquel 3 00 mg at the nighttime and sodium chloride. LABORATORY DATA: Reviewed. WBC cells were elevated yesterday, today is trending down. Chemistry re viewed and within normal limits. Toxicology positive for opioids. The patient was discharged from [facility] on 04/2016 and the gabapentin 300 mg twice a day and Seroquel 300 mg at the nightt eliana. The patient reported that she completed [facility] inpatient rehabilitation program. MENTAL STATUS EXAMINATION: The patient presented to be drowsy, falling asleep during the interview. Intermittent eye contact. Speech was low volume, under productive. Mood described as "I feel anxio us." Affect was flat. Thought process seems to be goal directed. Thought content: The patient den ied visual, auditory, tactile hallucinations. Denied paranoid ideation. Denied feeling of hopelessn ess or helplessness, denied any suicidal ideations, homicidal ideations or intent or plan. Insight a nd judgment are limited to her opioid addiction, but impulses are well controlled. IMPRESSION: Rule out substance-induced mood disorder, opioid addiction. The patient has multiple me dical issues. Please see medical team notes for more detailed information. Rule out anxiety due to chronic substance abuse. PLAN: wharf worker evaluation if patient is willing to go to inpatient rehab. The patient is not s uicidal or homicidal. Medications were resumed by medical team. The patient is not in acute distres s. The patient was educated to take medication as it was prescribed, the patient would benefit from that going to inpatient rehab. This display card writer will sign off. Should you have any questions, give me a c all back. Marie Ziegler MD cc: [id number] TT: 10/15/2016 18:39:28 Confirmation # [id number] Dictation # [id number] jn
[2016-10-15] MEDS: Sodium Chloride 0.9% 1,000 ML IV SCH (23:30)
[2016-10-16] MEDS: Pantoprazole 40 mg EC Tab PO SCH (05:41)
[2016-10-16] MEDS: metroNIDAZOLE IV 500 mg/100 ml 500 MG/100 ML BAG IVPB SCH ×2 (05:41→13:12)
[2016-10-16 07:21] LABS: ADD MANUAL DIFF? NO
[2016-10-16 07:28] LABS: EOS # 0.1 (0.0-0.7); GRAN # 5.71 (1.4-6.5); GRAN % 70.2 % (50.0-68.0); HEMATOCRIT 33.2 % (36.0-48.0); LYMPH # 1.7 (1.2-3.4); LYMPH % 20.7 % (22.0-35.0); MEAN CORPUSCULAR HEMOGLOBIN 30.1 pg (25.0-35.0); MEAN CORPUSCULAR HGB CONC 33.1 g/dl (31.0-37.0); MEAN PLATELET VOLUME 10.1 fl (7.0-11.0); MONO # 0.7 (0.1-0.6); MONO % 8.1 % (1.0-6.0); PLATELET COUNT 109 10^3/uL (120.0-450.0); WHITE BLOOD COUNT 8.1 10^3/ul (4.5-11.0)
[2016-10-16 07:45] LABS: IRON 14 ug/dL (45-180)
[2016-10-16 07:47] LABS: ALKALINE PHOSPHATASE 72 U/L (38-133); ALT/SGPT 53 U/L (7-56); AST/SGOT 21 U/L (15-39); BILIRUBIN,TOTAL 0.8 mg/dL (0.2-1.3); BLOOD UREA NITROGEN 11 mg/dL (7-21); CALCIUM 8.3 mg/dL (8.4-10.5); CARBON DIOXIDE 28 mmol/L (21-33); CHLORIDE 108 mmol/L (98-107); GFR AFRICAN-AMERICAN > 60; GLUCOSE,RANDOM 123 mg/dL (70-110); SODIUM 140 mmol/L (132-148); TOTAL PROTEIN 5.4 g/dL (5.8-8.3)
--- NOTE | 2016-10-16 08:42 | CP.PCM.PN ---
Subjective - Date & Time of Evaluation Date of Evaluation: 10/16/16 Time of Evaluation: 08:39 - Subjective Subjective: HOSPITALISTS PROGRESS NOTE Pt is seen and examined at bedside. No acute events overnight. Patient is much more awake compared to yesterday. She is A&O x 3. Daughter is at bedside. Patient still c/o of abd pain, constipation and right sided back pain. She states that she fell 2 days ago and back pain may be due to that. Patient denies having any CP, SOB, N/V, f/c. Objective - Vital Signs/Intake and Output Vital Signs (last 24 hours): Temp Pulse Resp BP Pulse Ox 98.7 F 87 20 95/62 L 99 10/15/16 16:00 10/15/16 16:00 10/15/16 16:00 10/15/16 16:00 10/15/16 16:00 Intake and Output: 10/16/16 10/16/16 06:59 18:59 Intake Total 2460 Balance 2460 - Medications Medications: Current Medications Al Hydrox/Mg Hydrox/Simethicone (Maalox Plus 30 Ml) 30 ml PO Q8 RIVKA Albuterol Sulfate (Albuterol 0.083% Inhal Lisa (2.5 Mg/3 Ml) Ud) 2.5 mg IH [id number] PRN PRN Reason: Shortness of Breath Gabapentin (Neurontin) 300 mg PO BID RIVKA PRN Reason: Protocol Last Admin: 10/15/16 18:06 Dose: 300 mg Hydrocortisone (Cortizone 1% Oint) 0 gm TOP BID [facility] Last Admin: 10/15/16 17:14 Dose: 1 applic Metronidazole (Flagyl) 500 mg in 100 mls @ 100 mls/hr IVPB Q8 RIVKA PRN Reason: Protocol Last Admin: 10/16/16 05:41 Dose: 100 mls/hr Ceftriaxone Sodium (Rocephin 1 Gram Ivpb) 1 gm in 100 mls @ 100 mls/hr IVPB DAILY RIVKA PRN Reason: Protocol Last Admin: 10/15/16 09:50 Dose: 100 mls/hr Sodium Chloride (Sodium Chloride 0.9%) 1,000 mls @ 125 mls/hr IV .Q8H RIVKA Last Admin: 10/15/16 23:30 Dose: 125 mls/hr Ketorolac Tromethamine (Toradol) 30 mg IVP Q6 PRN PRN Reason: Pain, moderate (4-7) Last Admin: 10/16/16 05:13 Dose: 30 mg Pantoprazole Sodium (Protonix Ec Tab) 40 mg PO 0630 RIVKA Last Admin: 10/16/16 05:41 Dose: 40 mg Quetiapine Fumarate (Seroquel) 300 mg PO HS RIVKA PRN Reason: Protocol Last Admin: 10/15/16 22:31 Dose: 300 mg - Labs Labs: 10/16/16 07:00 10/16/16 07:00 - Constitutional Appears: Non-toxic, No Acute Distress - Head Exam Head Exam: ATRAUMATIC - Eye Exam Eye Exam: EOMI - ENT Exam ENT Exam: Mucous Membranes Moist - Respiratory Exam Respiratory Exam: Clear to Ausculation Bilateral, NORMAL BREATHING PATTERN. absent: Rales, Rhonchi, Wheezes - Cardiovascular Exam Cardiovascular Exam: REGULAR RHYTHM, +S1, +S2. absent: Gallop, Rubs, Murmur - GI/Abdominal Exam GI & Abdominal Exam: Distended, Soft, Tenderness, Normal Bowel Sounds. absent: Firm, Guarding, Rigid - Extremities Exam Extremities Exam: absent: Pedal Edema, Tenderness - Neurological Exam Neurological Exam: Alert, Awake, Oriented x3 - Psychiatric Exam Psychiatric exam: Normal Affect, Normal Mood - Skin Skin Exam: Dry, Intact, Normal Color, Warm Assessment and Plan - Assessment and Plan (Free Text) Assessment: 51 yo female with PMH of asthma, anxiety, depression, polysubstance abuse is admitted for intractable abd pain and back pain. CT of abd pelvis showed filated pancreatic duct and trace mural thickening of bowel loops without inflammation. CT of pancreas was negative. Plan: 1. abd pain likely 2/2 constipation - Rocephin and flagyl. Will consider stopping Abx - Will give maalox and colace - toradol prn for pain - pancreatic CT is negative 2. Transaminits - Hep c is reactive. Patient is aware that she is hep c positive - Discussed with patient that will need to follow up with [facility] for treatment 3. rash/ pruititis - Improved - hydrocortisone cream - Benadryl 4. anxiety - cont home medication, seroquel 5. back pain - Will get physical therapy - toradol for pain Prophylaxis dvt- scds, activity as tolerated GI- protonix Case discussed with attending, Dr. Yusuf
--- NOTE | 2016-10-16 08:43 | CP.PCM.PN ---
<Danny Ochoa - Last Filed: 10/16/16 08:39> Subjective - Date & Time of Evaluation Date of Evaluation: 10/16/16 Time of Evaluation: 06:50 - Subjective Subjective: PGY4 GI Fellow Progress Note Patient seen and examined bedside this morning. The patient admits to continued low/mid back pain. Denies any alyssia abdominal pain this morning and is seen eating her entire breakfast tray without issue or discomfort. Denies any nausea , vomiting. Daughter as bedside this morning. She is much more alert today. 12 system ROS performed and negative except where stated. Objective - Vital Signs/Intake and Output Vital Signs (last 24 hours): Temp Pulse Resp BP Pulse Ox 98.7 F 87 20 95/62 L 99 10/15/16 16:00 10/15/16 16:00 10/15/16 16:00 10/15/16 16:00 10/15/16 16:00 Intake and Output: 10/16/16 10/16/16 06:59 18:59 Intake Total 2460 Balance 2460 - Medications Medications: Current Medications Al Hydrox/Mg Hydrox/Simethicone (Maalox Plus 30 Ml) 30 ml PO Q8 RIVKA Albuterol Sulfate (Albuterol 0.083% Inhal Lisa (2.5 Mg/3 Ml) Ud) 2.5 mg IH [id number] PRN PRN Reason: Shortness of Breath Gabapentin (Neurontin) 300 mg PO BID RIVKA PRN Reason: Protocol Last Admin: 10/15/16 18:06 Dose: 300 mg Hydrocortisone (Cortizone 1% Oint) 0 gm TOP BID [facility] Last Admin: 10/15/16 17:14 Dose: 1 applic Metronidazole (Flagyl) 500 mg in 100 mls @ 100 mls/hr IVPB Q8 RIVKA PRN Reason: Protocol Last Admin: 10/16/16 05:41 Dose: 100 mls/hr Ceftriaxone Sodium (Rocephin 1 Gram Ivpb) 1 gm in 100 mls @ 100 mls/hr IVPB DAILY RIVKA PRN Reason: Protocol Last Admin: 10/15/16 09:50 Dose: 100 mls/hr Sodium Chloride (Sodium Chloride 0.9%) 1,000 mls @ 125 mls/hr IV .Q8H RIVKA Last Admin: 10/15/16 23:30 Dose: 125 mls/hr Ketorolac Tromethamine (Toradol) 30 mg IVP Q6 PRN PRN Reason: Pain, moderate (4-7) Last Admin: 10/16/16 05:13 Dose: 30 mg Pantoprazole Sodium (Protonix Ec Tab) 40 mg PO 0630 RIVKA Last Admin: 10/16/16 05:41 Dose: 40 mg Quetiapine Fumarate (Seroquel) 300 mg PO HS RIVKA PRN Reason: Protocol Last Admin: 10/15/16 22:31 Dose: 300 mg - Labs Labs: 10/16/16 07:00 10/16/16 07:00 - Constitutional Appears: Non-toxic, No Acute Distress - Eye Exam Eye Exam: EOMI, PERRL - ENT Exam ENT Exam: Mucous Membranes Moist - Respiratory Exam Respiratory Exam: Clear to Ausculation Bilateral. absent: Rales, Rhonchi, Wheezes - Cardiovascular Exam Cardiovascular Exam: RRR, +S1, +S2 - GI/Abdominal Exam GI & Abdominal Exam: Distended, Soft, Normal Bowel Sounds. absent: Firm, Guarding, Rigid, Tenderness, Organomegaly - Extremities Exam Extremities Exam: Normal Inspection. absent: Pedal Edema - Neurological Exam Neurological Exam: Alert, Awake, Oriented x3 - Psychiatric Exam Psychiatric exam: Normal Affect, Normal Mood - Skin Skin Exam: Dry, Warm Assessment and Plan - Assessment and Plan (Free Text) Assessment: Patient is a 51yo female with PMHx significant for asthma, anxiety, depression, prior inpatient psychiatric admission for suicidal ideation, heroin abuse who presented to the ED with back pain. -Back pain -HCV Ab positive -Constipation -Abdominal pain, resolved -Altered mentation, resolved -Opioid abuse Plan: -CT pancreatic protocol reviewed, unremarkable -No obvious GI cause of pain noted to this point from current work up -Tolerating diet without issue -Avoid opiates as possible -Encourage MSK/back pain work up per primary service -Miralax 17g PO QD - constipation -UDS positive for opiates - none given in house prior to analysis -HCV GT/viral load pending -HIV screening pending <Ozzie Quinones - Last Filed: 10/16/16 11:01> Objective - Vital Signs/Intake and Output Vital Signs (last 24 hours): Temp Pulse Resp BP Pulse Ox 98.4 F 63 18 137/81 94 L 10/16/16 08:00 10/16/16 08:00 10/16/16 08:00 10/16/16 08:00 10/16/16 08:00 Intake and Output: 10/16/16 10/16/16 06:59 18:59 Intake Total 2460 Balance 2460 - Medications Medications: Current Medications Al Hydrox/Mg Hydrox/Simethicone (Maalox Plus 30 Ml) 30 ml PO Q8 RIVKA Last Admin: 10/16/16 10:09 Dose: 30 ml Albuterol Sulfate (Albuterol 0.083% Inhal Lisa (2.5 Mg/3 Ml) Ud) 2.5 mg IH [id number] PRN PRN Reason: Shortness of Breath Docusate Sodium (Colace) 100 mg PO TID RIVKA Ferrous Sulfate (Feosol) 324 mg PO DAILY [facility] Last Admin: 10/16/16 10:08 Dose: 324 mg Gabapentin (Neurontin) 300 mg PO BID RIVKA PRN Reason: Protocol Last Admin: 10/16/16 10:08 Dose: 300 mg Hydrocortisone (Cortizone 1% Oint) 0 gm TOP BID [facility] Last Admin: 10/16/16 10:09 Dose: 1 applic Metronidazole (Flagyl) 500 mg in 100 mls @ 100 mls/hr IVPB Q8 RIVKA PRN Reason: Protocol Last Admin: 10/16/16 05:41 Dose: 100 mls/hr Ceftriaxone Sodium (Rocephin 1 Gram Ivpb) 1 gm in 100 mls @ 100 mls/hr IVPB DAILY RIVKA PRN Reason: Protocol Last Admin: 10/16/16 10:08 Dose: 100 mls/hr Sodium Chloride (Sodium Chloride 0.9%) 1,000 mls @ 125 mls/hr IV .Q8H [facility] Last Admin: 10/16/16 10:09 Dose: 125 mls/hr Ketorolac Tromethamine (Toradol) 30 mg IVP Q6 PRN PRN Reason: Pain, moderate (4-7) Last Admin: 10/16/16 05:13 Dose: 30 mg Pantoprazole Sodium (Protonix Ec Tab) 40 mg PO 0630 [facility] Last Admin: 10/16/16 05:41 Dose: 40 mg Polyethylene Glycol (Miralax) 17 gm PO DAILY [facility] Last Admin: 10/16/16 10:09 Dose: 17 gm Quetiapine Fumarate (Seroquel) 300 mg PO HS RIVKA PRN Reason: Protocol Last Admin: 10/15/16 22:31 Dose: 300 mg - Labs Labs: 10/16/16 07:00 10/16/16 07:00 Attending/Attestation - Attestation I have personally seen and examined this patient.: Yes I have fully participated in the care of the patient.: Yes I have reviewed all pertinent clinical information, including history, physical exam and plan: Yes Notes (Text): 10/16/16 10:58 I have seen and examined patient with GI fellow. No acute events overnight, she is seen sitting in bed eating breakfast, appears comfortable. She mainly complains of ongoing back pain requiring constant pain medication. She denies nausea, vomiting, fever/chills. Tolerating PO diet without difficulty. HCV Polysubstance abuse Abdominal pain, constipation Back pain CT pancreas reviewed by me showing no gross abnormalities Iron deficiency anemia - Diet as tolerated - Aggressive bowel regimen to prevent constipation - LFTs normalized, continue to monitor - HCV genotype and viral load sent, will await results, though she is currently not a candidate for treatment given ongoing substance abuse - Suggest elective outpatient endoscopic evaluation for workup of iron deficiency anemia - No ongoing GI issues, will sign off case. Please reconsult as necessary, thank you.
[2016-10-16 08:53] VITALS: PULSE 63; RESP 18
[2016-10-16] MEDS ORDERED: POLYETHYLENE GLYCOL 3350 17 GM/Dose PACKET PO SCH (10:00)
[2016-10-16] MEDS ORDERED: Magnesium Citrate Oral SOL (300 ml) PO ONE (10:03)
[2016-10-16] MEDS: cefTRIAXone 1 gm 1 GM/100 ML BAG IVPB SCH (10:08)
[2016-10-16] MEDS: Alum-Mag Hydrox-Simethicone Susp (30 mL) PO SCH ×2 (10:09→13:12)
[2016-10-16] MEDS: Sodium Chloride 0.9% 1,000 ML IV SCH (10:09)
--- NOTE | 2016-10-16 11:11 | CP.PCM.DIS ---
<Pau Faye - Last Filed: 10/16/16 18:03> Provider - Provider Date of Admission: 10/14/16 23:36 Attending physician: Yee Yusuf MD Primary care physician: Colt Moore MD Consults: GI: Dr. Carver Psych: Dr. Ziegler Time Spent in preparation of Discharge (in minutes): 45 Diagnosis - Discharge Diagnosis (1) Back pain Status: Acute (2) Abdominal pain Status: Acute (3) Polysubstance abuse Status: Acute (4) Hepatitis C Status: Acute Hospital Course - Lab Results Lab Results: Micro Results 10/14/16 23:45 Blood Blood Culture - Preliminary NO GROWTH AFTER 24 HOURS Most Recent Lab Values WBC 8.1 10^3/ul (4.5-11.0) 10/16/16 07:00 RBC 3.65 10^6/uL (3.5-6.1) 10/16/16 07:00 Hgb 11.0 gm/dL (12.0-16.0) L 10/16/16 07:00 Hct 33.2 % (36.0-48.0) L 10/16/16 07:00 MCV 91.0 fL (80.0-105.0) 10/16/16 07:00 MCH 30.1 pg (25.0-35.0) 10/16/16 07:00 MCHC 33.1 g/dl (31.0-37.0) 10/16/16 07:00 RDW 14.0 % (11.5-14.5) 10/16/16 07:00 Plt Count 109 10^3/uL (120.0-450.0) L 10/16/16 07:00 MPV 10.1 fl (7.0-11.0) 10/16/16 07:00 Gran % 70.2 % (50.0-68.0) H 10/16/16 07:00 Lymph % (Auto) 20.7 % (22.0-35.0) L 10/16/16 07:00 [place] % (Auto) 8.1 % (1.0-6.0) H 10/16/16 07:00 Eos % (Auto) 1.0 % (1.5-5.0) L 10/16/16 07:00 Baso % (Auto) 0.0 % (0.0-3.0) 10/16/16 07:00 Gran # 5.71 (1.4-6.5) 10/16/16 07:00 Lymph # 1.7 (1.2-3.4) 10/16/16 07:00 [place] # 0.7 (0.1-0.6) H 10/16/16 07:00 Eos # 0.1 (0.0-0.7) 10/16/16 07:00 Baso # 0.00 K/mm3 (0.0-2.0) 10/16/16 07:00 pCO2 45 mm/Hg (35-45) 10/15/16 05:30 pO2 98.0 mm/Hg (80-100) 10/15/16 05:30 HCO3 26.6 mmol/L (21-28) 10/15/16 05:30 ABG pH 7.38 (7.35-7.45) 10/15/16 05:30 ABG Total CO2 28.0 mmol.L (22-28) 10/15/16 05:30 ABG O2 Saturation 98.8 % (95-98) H 10/15/16 05:30 ABG O2 Content 15.2 ML/dl (15-23) 10/15/16 05:30 ABG Base Excess 1.1 mmol/L (-2.0-3.0) 10/15/16 05:30 ABG Hemoglobin 11.6 g/dL (11.7-17.4) L 10/15/16 05:30 ABG Carboxyhemoglobin 5.8 % (0.5-1.5) H 10/15/16 05:30 POC ABG HHb (Measured) 1.1 % (0-5) 10/15/16 05:30 ABG Methemoglobin 1.0 % (0.0-3.0) 10/15/16 05:30 ABG O2 Capacity 15.4 mL/dl (16-24) L 10/15/16 05:30 Hgb O2 Saturation 92.2 % (95.0-98.0) L 10/15/16 05:30 FiO2 28.0 % 10/15/16 05:30 Sodium 140 mmol/L (132-148) 10/16/16 07:00 Potassium 4.0 mmol/L (3.6-5.0) 10/16/16 07:00 Chloride 108 mmol/L (98-107) H 10/16/16 07:00 Carbon Dioxide 28 mmol/L (21-33) 10/16/16 07:00 Anion Gap 8 (10-20) L 10/16/16 07:00 BUN 11 mg/dL (7-21) 10/16/16 07:00 Creatinine 0.5 mg/dL (0.5-1.4) 10/16/16 07:00 Est GFR ( Amer) > 60 10/16/16 07:00 Est GFR (Non-Af Amer) > 60 10/16/16 07:00 POC Glucose (mg/dL) 118 mg/dL (65-110) H 10/15/16 05:13 Random Glucose 123 mg/dL (70-110) H 10/16/16 07:00 Calcium 8.3 mg/dL (8.4-10.5) L 10/16/16 07:00 Iron 14 ug/dL (45-180) L 10/16/16 07:00 TIBC 254 ug/dL (265-497) L 10/16/16 07:00 % Saturation 6 % (20-55) L 10/16/16 07:00 Total Bilirubin 0.8 mg/dL (0.2-1.3) 10/16/16 07:00 AST 21 U/L (15-39) 10/16/16 07:00 ALT 53 U/L (7-56) 10/16/16 07:00 Alkaline Phosphatase 72 U/L (38-133) 10/16/16 07:00 Total Protein 5.4 g/dL (5.8-8.3) L 10/16/16 07:00 Albumin 2.7 g/dL (3.0-4.8) L 10/16/16 07:00 Globulin 2.8 gm/dL 10/16/16 07:00 Albumin/Globulin Ratio 1.0 (1.1-1.8) L 10/16/16 07:00 Lipase 12 U/L (23-300) L 10/14/16 20:34 Urine Color Yellow (YELLOW) 10/14/16 20:34 Urine Appearance Clear (CLEAR) 10/14/16 20:34 Urine pH 6.0 (4.7-8.0) 10/14/16 20:34 Ur Specific [place] 1.015 (1.005-1.035) 10/14/16 20:34 Urine Protein Negative mg/dL (<30 mg/dL) 10/14/16 20:34 Urine Glucose (UA) Negative mg/dL (NEGATIVE) 10/14/16 20:34 Urine Ketones Negative mg/dL (NEGATIVE) 10/14/16 20:34 Urine Blood Negative (NEGATIVE) 10/14/16 20:34 Urine Nitrate Negative (NEGATIVE) 10/14/16 20:34 Urine Bilirubin Negative (NEGATIVE) 10/14/16 20:34 Urine Urobilinogen 0.2 E.U./dL (<1 E.U./dL) 10/14/16 20:34 Ur Leukocyte Esterase Negative Esther/uL (NEGATIVE) 10/14/16 20:34 Urine HCG, Qual Negative (NEGATIVE) 10/14/16 20:34 Urine Opiates Screen Positive (NEGATIVE) H 10/14/16 20:34 Urine Methadone Screen Negative (NEGATIVE) 10/14/16 20:34 Ur Barbiturates Screen Negative (NEGATIVE) 10/14/16 20:34 Ur Phencyclidine Scrn Negative (NEGATIVE) 10/14/16 20:34 Ur Amphetamines Screen Negative (NEGATIVE) 10/14/16 20:34 U Benzodiazepines Scrn Negative (NEGATIVE) 10/14/16 20:34 U Oth Cocaine Metabols Negative (NEGATIVE) 10/14/16 20:34 U Cannabinoids Screen Negative (NEGATIVE) 10/14/16 20:34 Hepatitis A IgM Ab Negative (NEGATIVE) 10/15/16 07:10 Hep Bs Antigen Negative (NEGATIVE) 10/15/16 07:10 Hep B Core IgM Ab Negative (NEGATIVE) 10/15/16 07:10 Hepatitis C Antibody Reactive (NEGATIVE) H 10/15/16 07:10 - Hospital Course Hospital Course: 51 year old female with past medical history of asthma, anxiety, depression, polysubstance abuse presented to ED with abd pain and rash. During hospital stay , patient received cortisone cream 1% and didn't complain of worsening rash. Patient had leukocystosis and transaminitis on admission. Hepatitis panel was checked which showed that patient is positive for hepatitis C. On admission, CT of abd/pelvis showed prominence of main pancreatic duct without a discrete mass, and trace mural thickening within multiple loops of small bowel without surrounding inflammation. GI was consulted and recommended CT of pancreas. Pancreatic CT was negative. Patient was found to have a substance abuse history and UDS was positive for opiates. Psych was consulted and recommended drug rehab after discharge. Patient refused to go to rehab. On blood work, patient was also found to have iron deficiency anemia. She was started on oral iron supplements and colace. Patient also complained of constipation during stay which was likely causing the abdominal pain. Patient was given medications to help have bowel movements. Patient's condition improved. Per nurse, patient is ambulating to bathroom without difficulty. Discharge instructions: Patient is to follow up with PMD upon discharge. Patient is given referral to GI specialist, Dr. Quinones for out patient colonoscopy. Patient is also told to follow up with [facility] for hepatitis C treatment. With history of hep C, it is recommended to patient to avoid ETOH use, tylenol and any drugs with hepatotoxic effects. Patient refuses to get information about drug rehab programs. Patient is discharged on the following medications: Colace, ferrous sulfate, miralax, Cortisone 1%, Motrin 400 mg po q6 prn #20, protonix. Scripts are given to patient before discharge. - Date & Time of H&P Date of H&P: 10/16/16 Time of H&P: 11:18 Discharge Exam - Head Exam Head Exam: ATRAUMATIC, NORMOCEPHALIC - Eye Exam Eye Exam: EOMI Pupil Exam: PERRL - ENT Exam ENT Exam: Mucous Membranes Moist - Respiratory Exam Respiratory Exam: Clear to PA & Lateral, NORMAL BREATHING PATTERN. absent: Accessory Muscle Use, Rales, Rhonchi, Wheezes, Respiratory Distress - Cardiovascular Exam Cardiovascular Exam: REGULAR RHYTHM, +S1, +S2. absent: Diastolic murmur, Gallop , Rubs, Systolic Murmur - GI/Abdominal Exam GI & Abdominal Exam: Normal Bowel Sounds, Soft, Tenderness, Unremarkable. absent: Distended, Firm, Guarding, Rigid - Extremities Exam Additional comments: no edema or tenderness - Neurological Exam Neurological exam: Alert, Oriented x3 - Psychiatric Exam Psychiatric exam: Normal Affect, Normal Mood - Skin Skin Exam: Dry, Intact, Normal Color, Warm Discharge Plan - Discharge Medications Prescriptions: Docusate [Colace] 100 mg PO TID #30 cap Ferrous Sulfate [Feosol] 324 mg PO DAILY #30 ect Hydrocortisone 1% Oint [Cortizone 1% Oint] 1 % TOP BID #1 Ibuprofen [Motrin] 400 mg PO Q6 PRN #20 tab PRN Reason: Pain, Moderate (4-7) Pantoprazole [Protonix EC Tab] 40 mg PO 0630 #30 ect Polyethylene Glycol 3350 [Miralax] 17 gm PO DAILY #30 packet - Follow Up Plan Condition: STABLE Disposition: HOME/ ROUTINE Instructions: Constipation (DC), High Fiber Diet (DC), Acute Abdominal Pain (DC ) Additional Instructions: Patient is to follow up with PMD upon discharge. Patient is given referral to GI specialist, Dr. Quinones for out patient colonoscopy. Patient is also told to follow up with [facility] for hepatitis C treatment. With history of hep C, it is recommended to patient to avoid ETOH use, tylenol and any drugs with hepatotoxic effects. Patient refuses to get information about drug rehab programs. Patient is discharged on the following medications: Colace, ferrous sulfate, miralax, Cortisone 1%, Motrin 400 mg po q6 prn #20, protonix. Scripts are given to patient before discharge. Referrals: Colt Moore MD [Primary Care Provider] - Ozzie Quinones MD [Staff Provider] - <Yee Yusuf - Last Filed: 10/17/16 14:36> Provider - Provider Date of Admission: 10/14/16 23:36 Attending physician: Yee Yusuf MD Primary care physician: Colt Moore MD Hospital Course - Lab Results Lab Results: Micro Results 10/14/16 23:45 Blood Blood Culture - Preliminary NO GROWTH AFTER 48 HOURS Most Recent Lab Values WBC 8.1 10^3/ul (4.5-11.0) 10/16/16 07:00 RBC 3.65 10^6/uL (3.5-6.1) 10/16/16 07:00 Hgb 11.0 gm/dL (12.0-16.0) L 10/16/16 07:00 Hct 33.2 % (36.0-48.0) L 10/16/16 07:00 MCV 91.0 fL (80.0-105.0) 10/16/16 07:00 MCH 30.1 pg (25.0-35.0) 10/16/16 07:00 MCHC 33.1 g/dl (31.0-37.0) 10/16/16 07:00 RDW 14.0 % (11.5-14.5) 10/16/16 07:00 Plt Count 109 10^3/uL (120.0-450.0) L 10/16/16 07:00 MPV 10.1 fl (7.0-11.0) 10/16/16 07:00 Gran % 70.2 % (50.0-68.0) H 10/16/16 07:00 Lymph % (Auto) 20.7 % (22.0-35.0) L 10/16/16 07:00 [place] % (Auto) 8.1 % (1.0-6.0) H 10/16/16 07:00 Eos % (Auto) 1.0 % (1.5-5.0) L 10/16/16 07:00 Baso % (Auto) 0.0 % (0.0-3.0) 10/16/16 07:00 Gran # 5.71 (1.4-6.5) 10/16/16 07:00 Lymph # 1.7 (1.2-3.4) 10/16/16 07:00 [place] # 0.7 (0.1-0.6) H 10/16/16 07:00 Eos # 0.1 (0.0-0.7) 10/16/16 07:00 Baso # 0.00 K/mm3 (0.0-2.0) 10/16/16 07:00 pCO2 45 mm/Hg (35-45) 10/15/16 05:30 pO2 98.0 mm/Hg (80-100) 10/15/16 05:30 HCO3 26.6 mmol/L (21-28) 10/15/16 05:30 ABG pH 7.38 (7.35-7.45) 10/15/16 05:30 ABG Total CO2 28.0 mmol.L (22-28) 10/15/16 05:30 ABG O2 Saturation 98.8 % (95-98) H 10/15/16 05:30 ABG O2 Content 15.2 ML/dl (15-23) 10/15/16 05:30 ABG Base Excess 1.1 mmol/L (-2.0-3.0) 10/15/16 05:30 ABG Hemoglobin 11.6 g/dL (11.7-17.4) L 10/15/16 05:30 ABG Carboxyhemoglobin 5.8 % (0.5-1.5) H 10/15/16 05:30 POC ABG HHb (Measured) 1.1 % (0-5) 10/15/16 05:30 ABG Methemoglobin 1.0 % (0.0-3.0) 10/15/16 05:30 ABG O2 Capacity 15.4 mL/dl (16-24) L 10/15/16 05:30 Hgb O2 Saturation 92.2 % (95.0-98.0) L 10/15/16 05:30 FiO2 28.0 % 10/15/16 05:30 Sodium 140 mmol/L (132-148) 10/16/16 07:00 Potassium 4.0 mmol/L (3.6-5.0) 10/16/16 07:00 Chloride 108 mmol/L (98-107) H 10/16/16 07:00 Carbon Dioxide 28 mmol/L (21-33) 10/16/16 07:00 Anion Gap 8 (10-20) L 10/16/16 07:00 BUN 11 mg/dL (7-21) 10/16/16 07:00 Creatinine 0.5 mg/dL (0.5-1.4) 10/16/16 07:00 Est GFR ( Amer) > 60 10/16/16 07:00 Est GFR (Non-Af Amer) > 60 10/16/16 07:00 POC Glucose (mg/dL) 118 mg/dL (65-110) H 10/15/16 05:13 Random Glucose 123 mg/dL (70-110) H 10/16/16 07:00 Calcium 8.3 mg/dL (8.4-10.5) L 10/16/16 07:00 Iron 14 ug/dL (45-180) L 10/16/16 07:00 TIBC 254 ug/dL (265-497) L 10/16/16 07:00 % Saturation 6 % (20-55) L 10/16/16 07:00 Ferritin 151.0 ng/mL 10/16/16 07:00 Total Bilirubin 0.8 mg/dL (0.2-1.3) 10/16/16 07:00 AST 21 U/L (15-39) 10/16/16 07:00 ALT 53 U/L (7-56) 10/16/16 07:00 Alkaline Phosphatase 72 U/L (38-133) 10/16/16 07:00 Total Protein 5.4 g/dL (5.8-8.3) L 10/16/16 07:00 Albumin 2.7 g/dL (3.0-4.8) L 10/16/16 07:00 Globulin 2.8 gm/dL 10/16/16 07:00 Albumin/Globulin Ratio 1.0 (1.1-1.8) L 10/16/16 07:00 Lipase 12 U/L (23-300) L 10/14/16 20:34 Urine Color Yellow (YELLOW) 10/14/16 20:34 Urine Appearance Clear (CLEAR) 10/14/16 20:34 Urine pH 6.0 (4.7-8.0) 10/14/16 20:34 Ur Specific [place] 1.015 (1.005-1.035) 10/14/16 20:34 Urine Protein Negative mg/dL (<30 mg/dL) 10/14/16 20:34 Urine Glucose (UA) Negative mg/dL (NEGATIVE) 10/14/16 20:34 Urine Ketones Negative mg/dL (NEGATIVE) 10/14/16 20:34 Urine Blood Negative (NEGATIVE) 10/14/16 20:34 Urine Nitrate Negative (NEGATIVE) 10/14/16 20:34 Urine Bilirubin Negative (NEGATIVE) 10/14/16 20:34 Urine Urobilinogen 0.2 E.U./dL (<1 E.U./dL) 10/14/16 20:34 Ur Leukocyte Esterase Negative Esther/uL (NEGATIVE) 10/14/16 20:34 Urine HCG, Qual Negative (NEGATIVE) 10/14/16 20:34 Urine Opiates Screen Positive (NEGATIVE) H 10/14/16 20:34 Urine Methadone Screen Negative (NEGATIVE) 10/14/16 20:34 Ur Barbiturates Screen Negative (NEGATIVE) 10/14/16 20:34 Ur Phencyclidine Scrn Negative (NEGATIVE) 10/14/16 20:34 Ur Amphetamines Screen Negative (NEGATIVE) 10/14/16 20:34 U Benzodiazepines Scrn Negative (NEGATIVE) 10/14/16 20:34 U Oth Cocaine Metabols Negative (NEGATIVE) 10/14/16 20:34 U Cannabinoids Screen Negative (NEGATIVE) 10/14/16 20:34 Hepatitis A IgM Ab Negative (NEGATIVE) 10/15/16 07:10 Hep Bs Antigen Negative (NEGATIVE) 10/15/16 07:10 Hep B Core IgM Ab Negative (NEGATIVE) 10/15/16 07:10 Hepatitis C Antibody Reactive (NEGATIVE) H 10/15/16 07:10 HIV 1&2 Ag/Ab, 4th Gen Nonreactive (Nonreactive) 10/16/16 07:00 Attending/Attestation - Attestation I have personally seen and examined this patient.: Yes I have fully participated in the care of the patient.: Yes I have reviewed all pertinent clinical information, including history, physical exam and plan: Yes Notes (Text): 10/17/16 14:32 attending note; Patient seen and examined with resident. Patient is a 51-year-old female admitted with abdominal pain and back pain. CT abdomen showed mildly dilated pancreatic duct. CT pancreatic protocol was normal. GI evaluation Appreciated. patient is tolerating diet. Denies any nausea, vomiting. needs outpatient colonoscopy. constipation; secondary to heroin abuse. Patient was given Colace and MiraLAX. tapwater enema given. Chronic pain syndrome; patient is constantly requesting pain medication. psychiatric Evaluation appreciated. patient is currently refusing to go to any rehabilitation. Chronic hepatitis C; advised to follow-up with [facility] upon discharge. Patient is ambulating without any difficulty. Patient will be discharged home today. follow-up with PMD Dr. Moore. Needs close outpatient GI/psychiatric follow-up.
[2016-10-16 16:49] VITALS: BP 142/86; TEMP 98.2; O2SAT 98
== END 2016-10-16 16:50 | disposition home or self-care (01) ==
LOC: ED 20:05 → ERH 23:36 → 5RSO 10-15 01:20
PROVIDERS: ADMIT Internal Medicine; ATTEND Internal Medicine
DX: M54.5 Low back pain (principal); B19.20 Unspecified viral hepatitis C without hepatic coma; R10.9 Unspecified abdominal pain; R11.2 Nausea with vomiting, unspecified; J45.909 Unspecified asthma, uncomplicated; F17.200 Nicotine dependence, unspecified, uncomplicated; F32.9 Major depressive disorder, single episode, unspecified; F11.10 Opioid abuse, uncomplicated
CPT/HCPCS: 36415; 74177; 80053; 80074; 80324; 80345; 80346; 80349; 80353; 80358; 80361; 81003; 82728; 82803; 82948; 83540; 83550; 83690; 83992; 84703; 85025; 85027; 87040; 87522; 87902; 96365; 96366; 96375; 96376; 99285; G0378; J0696; J1885; J2405; J7040; Q9967

== ENCOUNTER 2018-02-08 09:41 | Emergency (ER) | payer MEDICAID, OTHER ==
[2017-01-06 12:49] VITALS: BMI 24.5
[2018-02-08 12:02] LABS: BASO # 0.02 K/mm3 (0.0-2.0); BASO % 0.2 % (0.0-3.0); EOS # 0.2 (0.0-0.7); EOS % 1.6 % (1.5-5.0); GRAN # 7.46 (1.4-6.5); GRAN % 70.9 % (50.0-68.0); HEMOGLOBIN 14.2 g/dL (12.0-16.0); LYMPH # 2.2 (1.2-3.4); LYMPH % 21.2 % (22.0-35.0); MEAN CELL VOLUME 90.8 fl (80.0-105.0); MEAN CORPUSCULAR HEMOGLOBIN 30.5 pg (25.0-35.0); MEAN CORPUSCULAR HGB CONC 33.6 g/dl (31.0-37.0); MEAN PLATELET VOLUME 10.8 fl (7.0-11.0); MONO # 0.6 (0.1-0.6); MONO % 6.1 % (1.0-6.0); RBC 4.65 10^6/uL (3.5-6.1); RED CELL DISTRIBUTION WIDTH 12.6 % (11.5-14.5); WHITE BLOOD COUNT 10.5 10^3/ul (4.5-11.0)
[2018-02-08 12:11] LABS: PARTIAL THROMBOPLASTIN TIME 32.4 Seconds (25.1-36.5); PROTHROMBIN TIME 11.5 SECONDS (9.4-12.5)
[2018-02-08 12:13] LABS: ALB/GLOB RATIO 1.2 (1.1-1.8); ALT/SGPT 64 U/L (7-56); AST/SGOT 49 U/L (14-36); BLOOD UREA NITROGEN 9 mg/dL (7-21); CALCIUM 9.2 mg/dL (8.4-10.5); GFR NON-AFRICAN AMERICAN > 60
[2018-02-08 12:24] LABS: TROPONIN I < 0.01 ng/mL
[2018-02-08 12:40] LABS: URINE BILIRUBIN NEGATIVE (NEGATIVE); URINE BLOOD NEGATIVE (NEGATIVE); URINE GLUCOSE (UA) NEGATIVE (NEGATIVE); URINE LEUKOCYTE ESTERASE NEGATIVE Leu/uL (NEGATIVE); URINE PROTEIN NEGATIVE mg/dL (<30 mg/dL); URINE UROBILINOGEN 0.2 E.U./dL (<1 E.U./dL)
[2018-02-08 12:48] LABS: URINE APPEARANCE CLEAR (CLEAR); URINE COLOR YELLOW (YELLOW)
[2018-02-08 12:51] LABS: BARBITURATES, UR NEGATIVE (NEGATIVE); BENZODIAZEPINES, UR POSITIVE (NEGATIVE); OPIATES, UR POSITIVE (NEGATIVE); PHENCYCLIDINE, UR NEGATIVE (NEGATIVE)
[2018-02-08 18:09] VITALS: BP 124/87; PULSE 79; RESP 20; TEMP 99.1; O2SAT 96
--- NOTE | 2018-02-09 16:15 | CARD ---
APPROVED REPORT Date of service: 02/08/2018 EKG Measurement Heart [id number] <Conclusion> Normal sinus rhythm PRWP V 1 - 4 Prolonged QT
== END 2018-02-08 15:50 | disposition left against medical advice (07) ==
LOC: ED 09:41
DX: F19.10 Other psychoactive substance abuse, uncomplicated (principal)

== ENCOUNTER 2018-04-10 13:23 | Emergency (ER) | payer OTHER ==
[2018-04-10 13:27] VITALS: BMI 25.7
[2018-04-10 13:30] VITALS: RESP 18; TEMP 98.7
[2018-04-10] MEDS ORDERED: Albuterol-Ipratrop 3 mg / 0.5 (3 ml) UD IH STA (13:35)
--- NOTE | 2018-04-10 13:53 | ED PDOC ---
Arrival/HPI - General Chief Complaint: Cough, Cold, Congestion Time Seen by Provider: 04/10/18 13:26 - History of Present Illness Narrative History of Present Illness (Text): 52 y/o F w/ h/o asthma and Hepatitis C presenting to the Emergency Room for an a sthma attack she began encountering 2 days ago. The patient reports increasing wheezing, diaphoresis and non-productive cough despite taking her inhaler. The patient denies nebulizer use, but does admit to having a Medrol Dose pack 2 weeks ago prescribed by her PCP. She denies fevers, chills, nausea/emesis, chest pain, syncopal epsiodes or dizziness. The patient reports recent sick contact exposure to her grandson who had URI symptoms last week. Time/Duration: 24 hours Symptom Onset: Sudden Symptom Course: Unchanged Severity Level: Moderate Activities at Onset: Rest Context: Home, Work Past Medical History - Provider Review Nursing Documentation Reviewed: Yes - Travel History Have you recently traveled outside [place] w/in the past 3 mons?: No - Infectious Disease Hx of Infectious Diseases: None - Reproductive Menopause: Yes - Cardiac Hx Hypertension: No - Pulmonary Hx Asthma: Yes - Neurological Hx Seizures: No - HEENT Hx HEENT Disorder: Yes Other/Comment: PT. FOR SURGERY 08/27/15-DX: VOCAL CORD POLYP - Renal Hx Renal Disorder: No - Endocrine/Metabolic Hx Endocrine Disorders: No - Hematological/Oncological Hx Blood Disorders: No - Integumentary Hx Dermatological Disorder: No - Musculoskeletal/Rheumatological Hx Musculoskeletal Disorders: Yes Hx Back Pain: Yes - Gastrointestinal Hx Gall Bladder Disease: Yes - Genitourinary/Gynecological Hx Sexually Transmitted Diseases: No - Psychiatric Hx Bipolar Disorder: Yes Hx Depression: Yes Hx Substance Use: No - Surgical History Hx Cholecystectomy: Yes - Anesthesia Hx Anesthesia: Yes Hx Anesthesia Reactions: No Hx Malignant Hyperthermia: No Family/Social History - Physician Review Nursing Documentation Reviewed: Yes Family/Social History: Unknown Family HX Smoking Status: Heavy Smoker > 10 Cigarettes Daily Hx Alcohol Use: No Hx Substance Use: No Substance used: Heroin Allergies/Home Meds Allergies/Adverse Reactions: Allergies No Known Allergies Allergy (Verified 01/06/17 13:10) Home Medications: Home Meds Medication Instructions Recorded Confirmed Albuterol HFA [Ventolin HFA 90 2 puff INH PRN PRN 06/15/15 01/06/17 mcg/actuation (8 g)] Alprazolam [Xanax] 2 mg PO TID 01/06/17 01/06/17 Review of Systems - Physician Review All systems were reviewed & negative as marked: Yes - Review of Systems Respiratory: SOB, Cough, Wheezing. absent: Sputum Cardiovascular: absent: Chest Pain, Palpitations, Edema Physical Exam Vital Signs Reviewed: Yes Vital Signs Temp Pulse Resp BP Pulse Ox 04/10/18 13:23 98.7 F 104 H 18 128/90 95 Temperature: Afebrile Blood Pressure: Normal Pulse: Regular Respiratory Rate: Tachypneic Appearance: Positive for: Well-Appearing, Non-Toxic, Other (Diaphoretic) Pain Distress: None Mental Status: Positive for: Alert and Oriented X 3 - Systems Exam Head: Present: Atraumatic, Normocephalic Pupils: Present: PERRL Extroacular Muscles: Present: EOMI Conjunctiva: Present: Normal Mouth: Present: Moist Mucous Membranes Neck: Present: Normal Range of Motion Respiratory/Chest: Present: Clear to Auscultation, Wheezes, Decreased Breath Sounds. No: Respiratory Distress, Accessory Muscle Use, Retracting Cardiovascular: Present: Tachycardic. No: Regular Rate and Rhythm, Murmurs Abdomen: Present: Normal Bowel Sounds. No: Tenderness, Distention Upper Extremity: Present: Normal Inspection. No: Cyanosis, Edema Lower Extremity: Present: Normal Inspection. No: Edema Neurological: Present: GCS=15, CN II-XII Intact, Speech Normal Skin: Present: Warm, Dry, Normal Color. No: Rashes Psychiatric: Present: Alert, Oriented x 3, Normal Insight, Normal Concentration Medical Decision Making ED Course and Treatment: Impression 52 y/o F w/ h/o asthma presenting with asthma attack Plan --EKG --CXR --Duonebs --Prednisone --Reassess & disposition Progress Notes - RAD Interpretation Narrative RAD Interpretations (Text): 04/10/18 14:56 Chest X-ray: Dictated by: Steff Machuca MD Impression: Right basilar atelctasis. Right hilar prominence Radiology Orders: 04/10/18 13:48 CHEST PORTABLE [RAD] Stat [employer]: Radiologist - Medication Orders Current Medication Orders: Prednisone (Prednisone Tab) 60 mg PO STAT ONE Stop: 04/10/18 13:48 Discontinued Medications Albuterol/Ipratropium (Duoneb 3 Mg/0.5 Mg (3 Ml) Ud) 3 ml IH STAT STA Stop: 04/10/18 13:36 Disposition/Present on Arrival - Present on Arrival Any Indicators Present on Arrival: No History of DVT/PE: No History of Uncontrolled Diabetes: No Urinary Catheter: No History of Decub. Ulcer: No History Surgical Site Infection Following: None - Disposition Have Diagnosis and Disposition been Completed?: Yes Diagnosis: Asthma attack Disposition: HOME/ ROUTINE Disposition Time: 15:11 Patient Plan: Discharge Condition: IMPROVED Discharge Instructions (ExitCare): Asthma, Adult (DC), Avoiding Asthma Triggers Print Language: GREEK Prescriptions: Albuterol Sulfate [Ventolin Hfa] 1 puff IH Q6H #100 ml Azithromycin [Z-Michael] 250 mg PO DAILY #6 tab Methylprednisolone [Medrol Dose Pack (21 tabs)] 4 mg PO DAILY #21 mg Referrals: [facility] [place] [Outside] - Follow up with primary Shahnaz Nam MD [Medical Doctor] - Follow up with primary Forms: [employer] (Faroese)
--- NOTE | 2018-04-10 14:44 | RAD ---
HISTORY: sob COMPARISON: Chest x-ray performed 03/23/16 TECHNIQUE: Chest, one view. FINDINGS: LUNGS: Right hilar prominence. Right basilar atelectasis. Please note that chest x-ray has limited sensitivity for the detection of pulmonary masses. PLEURA: No significant pleural effusion identified. No definite pneumothorax . CARDIOVASCULAR: Heart size appears top normal. No significant atherosclerotic calcification present. OSSEOUS STRUCTURES: Degenerative changes. VISUALIZED UPPER ABDOMEN: Right upper quadrant surgical clips. OTHER FINDINGS: None. IMPRESSION: Right basilar atelectasis. Right hilar prominence.
[2018-04-10 15:33] VITALS: BP 122/88; PULSE 88
[2018-04-10 15:37] VITALS: O2SAT 97
== END 2018-04-10 15:36 | disposition home or self-care (01) ==
LOC: ED 13:23
DX: J45.909 Unspecified asthma, uncomplicated (principal); F17.210 Nicotine dependence, cigarettes, uncomplicated

== ENCOUNTER 2018-09-20 22:33 | Emergency (ER) | payer OTHER ==
[2018-09-20 22:34] VITALS: BMI 25.7
--- NOTE | 2018-09-20 23:15 | ED PDOC ---
Arrival/HPI - General Chief Complaint: Substance Abuse Time Seen by Provider: 09/20/18 22:51 Historian: Patient, EMS - History of Present Illness Narrative History of Present Illness (Text): 09/20/18 23:15 Asuncion Lewis is a 53 year old female, whose past medical history includes asthma, Hepatitis C, and substance abuse, who presents to the ED brought in by EMS status post overdose tonight. [place], who called EMS. EMS found patient passed out and administered Narcan 1mg intranasally. On arrival to ED, patient had 1 episode of vomiting. Patient currently denies any complaints, states she just feels cold and tired. Patient reports she has been clean for months but used several bags of heroin tonight, patient will no quantify how many bags. Patient denies any other substance use, alcohol use, or any other complaints. Patient states smokes 1 pack per day. Time/Duration: Other (tonight) Symptom Course: Improving Activities at Onset: Light Context: Sitting, Street Past Medical History - Provider Review Nursing Documentation Reviewed: Yes - Infectious Disease Hx of Infectious Diseases: None - Cardiac Hx Hypertension: No - Pulmonary Hx Asthma: Yes - Neurological Hx Seizures: No - HEENT Hx HEENT Disorder: Yes Other/Comment: PT. FOR SURGERY 08/27/15-DX: VOCAL CORD POLYP - Renal Hx Renal Disorder: No - Endocrine/Metabolic Hx Endocrine Disorders: No - Hematological/Oncological Hx Blood Disorders: No - Integumentary Hx Dermatological Disorder: No - Musculoskeletal/Rheumatological Hx Musculoskeletal Disorders: Yes Hx Back Pain: Yes - Gastrointestinal Hx Gall Bladder Disease: Yes - Genitourinary/Gynecological Hx Sexually Transmitted Diseases: No - Psychiatric Hx Bipolar Disorder: Yes Hx Depression: Yes Hx Substance Use: No - Surgical History Hx Cholecystectomy: Yes - Anesthesia Hx Anesthesia: Yes Hx Anesthesia Reactions: No Hx Malignant Hyperthermia: No Family/Social History - Physician Review Nursing Documentation Reviewed: Yes Family/Social History: Unknown Family HX Smoking Status: Heavy Smoker > 10 Cigarettes Daily Hx Alcohol Use: No Hx Substance Use: No Substance used: Heroin Allergies/Home Meds Allergies/Adverse Reactions: Allergies No Known Allergies Allergy (Verified 01/06/17 13:10) Home Medications: Home Meds Medication Instructions Recorded Confirmed Albuterol HFA [Ventolin HFA 90 2 puff INH PRN PRN 06/15/15 01/06/17 mcg/actuation (8 g)] Alprazolam [Xanax] 2 mg PO TID 01/06/17 01/06/17 Review of Systems - Physician Review All systems were reviewed & negative as marked: Yes - Review of Systems Constitutional: Fatigue Psychiatric: Other (+heroin overdose) Physical Exam Vital Signs Reviewed: Yes Temperature: Afebrile Blood Pressure: Normal Pulse: Regular Respiratory Rate: Normal Appearance: Positive for: Well-Appearing, Non-Toxic, Comfortable Pain Distress: None Mental Status: Positive for: other (Drowsy but oriented x3) - Systems Exam Head: Present: Atraumatic, Normocephalic Pupils: Present: Other (3mm and reactive to light bilaterally) Extroacular Muscles: Present: EOMI Conjunctiva: Present: Normal Mouth: Present: Moist Mucous Membranes Neck: Present: Normal Range of Motion. No: Meningeal Signs, MIDLINE TENDERNESS, Paraspinal Tenderness Respiratory/Chest: Present: Wheezes (Expiratory wheezing bilaterally). No: Respiratory Distress, Accessory Muscle Use Cardiovascular: Present: Regular Rate and Rhythm, Normal S1, S2. No: Murmurs Abdomen: No: Tenderness, Distention, Peritoneal Signs Back: Present: Normal Inspection Upper Extremity: Present: Normal Inspection. No: Cyanosis, Edema Lower Extremity: Present: Normal Inspection. No: Edema Neurological: Present: GCS=15, CN II-XII Intact, Speech Normal Skin: Present: Warm, Dry, Normal Color. No: Rashes Psychiatric: Present: Oriented x 3, Other (Drowsy) Medical Decision Making ED Course and Treatment: 09/20/18 23:14 Impression: 53 year old female brought in s/p heroin overdose. Plan: -- EKG -- Reassess and disposition Prior Visits: Notes and results from previous visits were reviewed. Progress Notes: Reviewed EKG, NSR at 83 bpm. Normal axis. Normal intervals. No ST elevations. 09/21/18 04:12 Patient AAOx3, states that she would like to go home. Patient had no further episodes of respiratory depression, unresponsiveness, or nausea/vomiting while in the emergency department. Stable for discharge at this time. - EKG Interpretation Interpreted by ED Physician: Yes Type: 12 lead EKG - Scribe Statement The provider has reviewed the documentation as recorded by the Mynor Aldridge Provider Scribe Attestation: All medical record entries made by the Scribe were at my direction and personally dictated by me. I have reviewed the chart and agree that the record accurately reflects my personal performance of the history, physical exam, medical decision making, and the department course for this patient. I have also personally directed, reviewed, and agree with the discharge instructions and disposition. Disposition/Present on Arrival - Present on Arrival Any Indicators Present on Arrival: No History of DVT/PE: No History of Uncontrolled Diabetes: No Urinary Catheter: No History of Decub. Ulcer: No History Surgical Site Infection Following: None - Disposition Have Diagnosis and Disposition been Completed?: Yes Diagnosis: Heroin overdose Disposition: HOME/ ROUTINE Disposition Time: 04:10 Patient Problems: Current Active Problems Problem Status Onset Heroin overdose Acute Condition: STABLE Discharge Instructions (ExitCare): Narcotic Overdose (DC) Additional Instructions: ASUNCION LEWIS, thank you for letting us take care of you today. Your provider was Patsy Yeung MD and you were treated for OVERDOSE. The emergency medical care you received today was directed at your acute symptoms. If you were prescribed any medication, please fill it and take as directed. It may take several days for your symptoms to resolve. Return to the Emergency Department if your symptoms worsen, do not improve, or if you have any other problems. Please contact your doctor or call one of the physicians/clinics you have been referred to that are listed on the Patient Visit Information form that is included in your discharge packet. Bring any paperwork you were given at discharge with you along with any medications you are taking to your follow up visit. Our treatment cannot replace ongoing medical care by a primary care provider outside of the emergency department. Thank you for allowing the [facility] team to be part of your care today. If you had an X-Ray or CT scan: A Radiologist will review the ED reading if any change in treatment is needed we will contact you. If you had a blood, urine, or wound culture: It will take several days for the results, if any change in treatment is needed we will contact you. If you had an STI test: It will take 48 hours for the results. Please call after 1 week if you have not heard back. Forms: [employer] (Belgian)
[2018-09-21 04:42] VITALS: BP 120/68; PULSE 89; RESP 18; TEMP 97.9; O2SAT 96
--- NOTE | 2018-09-21 09:41 | CARD ---
APPROVED REPORT Date of service: 09/20/2018 EKG Measurement Heart [id number] <Conclusion> Normal sinus rhythm Normal ECG
== END 2018-09-21 04:19 | disposition home or self-care (01) ==
LOC: ED 22:33
DX: T40.1X1A Poisoning by heroin, accidental (unintentional), initial encounter (principal); Y92.410 Unspecified street and highway as the place of occurrence of the external cause; F17.210 Nicotine dependence, cigarettes, uncomplicated